=== PATIENT | female | born 1935 | race Caucasian/White ===

== ENCOUNTER → 2020-07-16 | Outpatient (CLI) | payer OTHER ==
[~2020-07-16] MED LIST: AMBIEN10 MG PO; ASPIR 8181 MG PO; ASPIRIN325 MG PO; BONIVA PO; CALCIUM PO; CALCIUM600 MG PO; COVID-19 VACC, MRNA(MODERNA)/PF 100 MCG/0.5 ML VIAL IM ONE; IBANDRONATE SO150 MG; IRON; LEVOTHYROXINE88 MCG PO; LORATADINE10 MG PO; LOW DOSE ASPIRI81 MG; PRAVASTATIN SOD40 MG PO; RANITIDINE HCL150 MG; STOOL SOFTENER PO; TYLENOL WITH C1 EACH PO; VITAMIN D PO; VITAMIN D32000 UNI1 PO
== END ==
LOC: VACCPMC 10:16
DX: Z23 Encounter for immunization (principal); Z20.822 Contact with and (suspected) exposure to COVID-19
CPT/HCPCS: 0011A; 91301

== ENCOUNTER → 2020-08-13 | Outpatient (CLI) | payer MEDICARE, OTHER | END | disposition home or self-care (01) | LOC: VACCPMC 11:00 | DX: Z23 Encounter for immunization (principal); Z20.822 Contact with and (suspected) exposure to COVID-19 | CPT/HCPCS: 91301 ==

== ENCOUNTER 2020-10-04 02:31 | Emergency (ER) | payer MEDICARE ==
[~2020-10-04] VITALS: Ht 152.4 cm; Wt 67.6 kg
[~2020-10-04 02:31] MED LIST changes: -COVID-19 VACC, MRNA(MODERNA)/PF 100 MCG/0.5 ML VIAL IM ONE
[2020-10-04 02:56] LABS: BASOPHILS % 0.5 % (0.0-1.0); EOSINOPHILS % 0.2 % (0.0-6.0); HEMATOCRIT 37.4 % (34.2-44.1); HEMOGLOBIN 11.7 g/dL (12.0-16.0); LYMPHOCYTES # (AUTO) 0.9 (1.0-3.2); LYMPHOCYTES % 10.7 % (18.0-39.1); MEAN CORPUSCULAR HEMOGLOBIN 30.4 pg (28-32); MEAN CORPUSCULAR HGB CONC 31.3 g/dL (31-35); MEAN CORPUSCULAR VOLUME 97.1 fL (81-99); MONOCYTES # (AUTO) 0.5 (0.2-0.8); MONOCYTES % 5.9 % (4.4-11.3); NEUTROPHILS # (AUTO) 7.1 (2.1-6.9); NEUTROPHILS % 82.2 % (38.7-80.0); PLATELET COUNT 175 x10e3/uL (140-360); RED BLOOD COUNT 3.85 x10e6/uL (3.6-5.1); RED CELL DISTRIBUTION WIDTH 12.5 % (11.7-14.4)
[2020-10-04 03:16] LABS: ANION GAP 14.3 mmol/L (8-16); CALCIUM 9.2 mg/dL (8.4-10.2); CREATININE, SERUM 0.92 mg/dL (0.57-1.11); POTASSIUM 4.3 mmol/L (3.5-5.1)
[2020-10-04] MEDS ORDERED: HYDROCODONE/APAP 7.5MG-325MG 1 EA TAB PO ONE (03:30)
[2020-10-04] MEDS ORDERED: HYDROCODON-ACE1 EAC9 PO (04:20)
== END 2020-10-04 04:35 | disposition home or self-care (01) ==
LOC: ER 02:44
DX: S42.291A Other displaced fracture of upper end of right humerus, initial encounter for closed fracture (principal); W01.0XXA Fall on same level from slipping, tripping and stumbling without subsequent striking against object, initial encounter; Y93.01 Activity, walking, marching and hiking; Y92.008 Other place in unspecified non-institutional (private) residence as the place of occurrence of the external cause; Z96.642 Presence of left artificial hip joint; Z85.850 Personal history of malignant neoplasm of thyroid
CPT/HCPCS: 36415; 70450; 72125; 80048; 80320; 85025; 99283

== ENCOUNTER → 2022-07-13 | Outpatient (CLI) | payer MEDICARE ==
[~2022-07-13] MED LIST changes: +HYDROCODON-ACE1 EAC9 PO
== END ==
LOC: MRI 12:46
PROVIDERS: ATTEND Internal Medicine
DX: S22.080D Wedge compression fracture of T11-T12 vertebra, subsequent encounter for fracture with routine healing (principal)
CPT/HCPCS: 72146; 72148

== ENCOUNTER → 2024-08-22 | Outpatient (REF) | payer MEDICARE | LOC: RAD 10:44 | PROVIDERS: ATTEND Internal Medicine | DX: I50.32 Chronic diastolic (congestive) heart failure (principal); I11.0 Hypertensive heart disease with heart failure | CPT/HCPCS: 93306 ==

== ENCOUNTER → 2025-01-17 | Outpatient (REF) | payer MEDICARE | LOC: RAD 11:38 | PROVIDERS: ATTEND Internal Medicine | DX: M79.605 Pain in left leg (principal); M25.552 Pain in left hip; M25.562 Pain in left knee; M17.12 Unilateral primary osteoarthritis, left knee | CPT/HCPCS: 93971 ==